=== PATIENT | male | born 2005 | race Two or more races ===

== ENCOUNTER 2025-07-13 07:37 | Emergency (ER) | payer BC, SELFPAY ==
[2025-07-13 07:39] VITALS: BP 138/92
--- NOTE | 2025-07-13 09:12 | ED.GENMED ---
History of Present Illness
General
Chief Complaint: Back Pain
Source: patient
Exam Limitations: none
Time Seen by Provider: 07/13/25 08:57
Nursing documentation reviewed up to this point in time: agreed with
History of Present Illness
History of Present Illness:
Patient is a healthy 20-year-old male who presents to the emergency department for evaluation of back pain. Today, he was getting back into the work truck when he felt a sharp pain on the right side of his back which seem to radiate into his right
leg. He also felt as if there is some discomfort in his right arm at the time. 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
While the general back discomfort has been ongoing for many years, with the sharp pain he experienced this morning, he came to the emergency department for evaluation. Pain is worse with bending at the waist. No other clear exacerbating or
alleviating factors.
He denies any associated numbness/tingling or weakness in lower extremities. No bowel/bladder incontinence. No fevers. No dysuria or hematuria. No history of IV drug use or malignancy.
He has not taken any medications thus far to alleviate back pain.
Past History
Social History
Tobacco: Other
Alcohol: Other
Drug: Other
Review of Systems
Review of Systems
Allergies reviewed?: Yes
All Other Systems: ROS reviewed and negative except as documented in HPI and ROS
Phy Exam
Physical Exam
Physical Exam:
Vitals: Mildly hypertensive, otherwise vital signs stable. Afebrile
General: Patient is very well appearing, no acute distress. Ambulating throughout ED room without difficulty on my initial evaluation.
Skin: Warm and dry, no rashes or lesions
Head: Normocephalic, atraumatic
Eyes: Sclera nonicteric.
Throat: Protecting airway
Neck: Normal ROM, no cervical spine tenderness, no meningismus
Cardiac: Regular rate and rhythm, no murmurs.
Pulm: Normal respiratory effort, no wheezes, rales, rhonchi heard on exam
Abdomen: Abdomen soft and nontender.
Back: No midline spinal tenderness or significant reproducible tenderness in paraspinal muscles. No CVA tenderness. No rash or ecchymoses. Negative straight leg raise bilaterally.
Extremities: No evidence of cyanosis or edema. Strength 5/5 in bilateral lower extremities with normal sensation.
Neuro: AAOx3. Grossly intact.
Psychiatric: Normal affect.
Course
Orders/Labs/Results
Orders:
Orders
07/13/25 09:09
Acetaminophen [Tylenol] 1,000 mg PO NOW STA
Ketorolac [Toradol] 15 mg IM NOW STA
Lidocaine [Lidocaine 4% Patch] 1 patch TOPICAL NOW STA
Apply Lidocaine patch(s) to:: R lower back
Lumbar Spine, 2 or 3 View [CR Lumbar Spine 2 Or 3 Views] Urgent
Comment:
Reason For Exam: Low back pain
07/13/25 10:23
Thoracic Spine 3 Views CR [CR Thoracic Spine 3 Views] Urgent
Comment:
Reason For Exam: mid back pain
Vital Signs
Initial and Last Documented VS:
Initial Vital Signs
Temp Pulse Resp BP Pulse Ox
98.4 F 87 18 138/92 98
07/13/25 07:39 07/13/25 07:39 07/13/25 07:39 07/13/25 07:39 07/13/25 07:39
Last Documented Vital Signs
Temp Pulse Resp BP Pulse Ox
98.4 F 63 18 123/69 100
07/13/25 07:39 07/13/25 12:12 07/13/25 12:12 07/13/25 12:12 07/13/25 12:12
MDM/Problems Addressed
Differential Diagnosis Includes:
Not limited to: Muscle strain/spasm, radiculopathy, compression fracture, etc.
MDM/Problems Addressed:
20-year-old healthy male presents with back pain. Denies trauma, fever, chills, weight loss, or other infectious symptoms. No history of IV drug use. He does perform manual labor job. He has had similar back pain for many years.
Pain appears musculoskeletal in nature based on history and exam�no neurological deficits or red flag features.
X-rays of the thoracic and lumbar spine were obtained and show no acute osseous abnormalities. No signs of fracture, dislocation, or other concerning pathology.
Given benign exam, lack of systemic symptoms, and normal imaging, symptoms are most consistent with musculoskeletal back pain. Symptoms treated in ED with toradol, tylenol, lidocaine patch. He is ambulating independently and laughing in room with
friend.
Patient discharged with supportive care instructions, NSAIDs, activity modification, and return precautions. Stable at discharge.
Chronic conditions affecting care:
N/A
Acute Exacerbation and/or Progression of Chronic Illness:
N/A
*Radiology
Radiology exam reviewed: radiology read reviewed
*Pulse Oximetry
SaO2: 98
Oxygen Mode of Delivery: Room air
Patient hypoxic: no
*EKG
Interpreted by ED Provider?: NA
*Motor Expert Interpretation
Rate: Motor Expert- N/A
*Critical Care Note
Total Time (30-74mins, 75-104mins- exclusive of procedures): Not Applicable
ED Attending Note
-
Portions of this chart may have been created with voice recognition software.� Occasional wrong word or��sound alike� substitutions may have occurred due to the inherent limitations of voice recognition software.
Discharge Plan
Departure
Patient Disposition: Home (Routine Discharge)
Date of Disposition: 07/13/25
Time of Disposition: 12:01
Patient with high blood pressure during this ER visit?: Yes
Condition: Good
Discharge Problem:
Back pain
Instructions: Low Back Pain (DC), Radiculopathy (DC)
Prescriptions:
New
cyclobenzaprine 5 mg tablet
5 mg PO HS PRN (Reason: back pain) Qty: 7 0RF
Referrals:
NONE,* [Family Provider, Internal Medicine]
Aleks Womack MD [Active, Orthopedics] - Next open appointment
Stand Alone Forms: Return to Work
Activity Restrictions/Additional Instructions:
RETURN TO THE EMERGENCY DEPARTMENT WITH ANY FEVER, CHILLS, INTRACTABLE BACK PAIN, NUMBNESS/TINGLING OR WEAKNESS IN LOWER EXTREMITIES, LOSS OF BOWEL/BLADDER CONTROL, URINARY SYMPTOMS, WORSENING IN CURRENT SYMPTOMS, OR ANY OTHER CONCERNS
- As discussed-your x-ray imaging of your thoracic and lumbar spine showed no acute abnormalities. I suspect your symptoms are likely secondary to a muscle spasm/muscular strain.
- Please continue to take Tylenol and/or ibuprofen as needed for pain. You can apply topical lidocaine patches. I have sent a prescription for a few muscle relaxer tablets which you can take for muscle spasm. This may cause drowsiness and you
should not take prior to driving. Continue to apply ice/heat to affected area
- Follow-up with orthopedics for further evaluation/management. You will likely require further imaging
Monitor your symptoms closely and return to the emergency department with any acute worsening/new symptoms or any other concerns
Interventions
Interventions:
*Risk Screen - Suicide Last Done: 07/13/25 07:39
*General Assessment Last Done: 07/13/25 07:39
*Neglect/Abuse Screening Last Done: 07/13/25 07:39
*ED- Fall Risk Assessment Last Done: 07/13/25 12:13
*ED COVID-19 Vaccine History Last Done: 07/13/25 12:13
*ED Influenza Vaccine History Last Done: 07/13/25 12:13
ED-Musculoskeletal Assessment Last Done: 07/13/25 09:28
*Nursing Disposition Last Done: 07/13/25 12:13
Discharge Date and Time
Discharge Date/Time: 07/13/25 12:15
Print Language: GREENLANDIC
[2025-07-13] MEDS: TORADOL 15 MG IM (09:18)
[2025-07-13] MEDS: LIDOCAINE 4% PATCH 1 PATCH TOPICAL (09:18)
[2025-07-13] MEDS: TYLENOL 1000 MG PO (09:18)
[2025-07-13 09:28] VITALS: BP 135/99
[2025-07-13 12:12] VITALS: BP 123/69
== END 2025-07-13 12:15 | disposition home or self-care (01) ==
LOC: EMR 07:37
PROVIDERS: EMERGENCY PHYSICIAN Emergency Medicine
DX: M54.50 Low back pain, unspecified (principal); R03.0 Elevated blood-pressure reading, without diagnosis of hypertension
CPT/HCPCS: 99284; 96372; 72072; 72100